=== PATIENT | male | born 1950 | race Caucasian/White ===

== ENCOUNTER → 2017-07-28 | Outpatient (CLI) | payer MEDICARE ==
--- NOTE | 2017-07-28 10:20 | RADRPT ---
EXAM DATE/TIME: 07/28/2017 09:15 [place] COMPARISON: No previous studies available for comparison. INDICATIONS : Elevated lab values. MEDICAL HISTORY : Hypercholesterolemia. Hypertension. Diabetes. Barretts esophagus. Renal disease, stage 3. Kidney [address] ones. SURGICAL HISTORY : Appendectomy. Tonsillectomy. ENCOUNTER: Initial ACUITY: 1 day PAIN SCORE: 0/10 LOCATION: Abdomen. MEASUREMENTS: LIVER: 17.1 cm length COMMON DUCT: 4 mm RIGHT KIDNEY: 10.4 x 5.3 x 5.6 cm LEFT KIDNEY: 10.6 x 4.3 x 5.4 cm SPLEEN: 10.4 cm length AORTA: 1.9cm maximal FINDINGS: LIVER: Increased echotexture without focal lesion or ductal dilatation. COMMON DUCT: No intraluminal mass or stone visualized. GALLBLADDER: Contains no stones, demonstrates no wall thickening or pericholecystic fluid. PANCREAS: Nonvisualized due to overlying bowel gas. RIGHT KIDNEY: No hydronephrosis, stone or mass. LEFT KIDNEY: No hydronephrosis, stone or mass. SPLEEN: No focal lesion. AORTA: Non aneurysmal. IVC: Within normal limits. CONCLUSION: Fatty liver. Nonvisualization of the pancreas. No obvious masses or free fluid seen. Johnnie Murcia MD on July 28, 2017 at 10:17 Board Certified Radiologist. This report was verified electronically.
== END ==
LOC: HRAD 08:42
PROVIDERS: ATTEND Internal Medicine
DX: R74.0 Nonspecific elevation of levels of transaminase and lactic acid dehydrogenase [LDH] (principal)
CPT/HCPCS: 76700